=== PATIENT | female | born 2000 | race Two or more races ===

== ENCOUNTER 2021-03-12 17:40 | Emergency (ER) | payer BC ==
[2021-03-12 18:14] VITALS: BP 110/69; PULSE 67; TEMP 98.3; BMI 30.7
[2021-03-12] MEDS ORDERED: KETOROLAC TROMETHAMINE 30 MG/1 ML VIAL IM ONE (18:25)
[2021-03-12] MEDS ORDERED: KETOROLAC TROMETHAMINE 30 MG/1 ML VIAL ONE (18:26)
== END 2021-03-12 18:34 | disposition home or self-care (01) ==
LOC: JERFT 17:40 → JER 17:40 → JERFT 18:34
PROC: 3E023GC Introduction of Other Therapeutic Substance into Muscle, Percutaneous Approach (ICD-10-PCS; principal; 2021-03-12)
DX: S29.012A Strain of muscle and tendon of back wall of thorax, initial encounter (principal); Y99.9 Unspecified external cause status
CPT/HCPCS: 99284-25

== ENCOUNTER 2021-04-07 16:49 | Emergency (ER) | payer BC ==
[2021-04-07 16:57] VITALS: BP 120/79; PULSE 74; TEMP 98.6; BMI 31.6
[2021-04-07] MEDS ORDERED: METHOCARBAMOL 500 MG TABLET PO ONE (18:48)
[2021-04-07] MEDS ORDERED: KETOROLAC TROMETHAMINE 30 MG/1 ML VIAL IM ONE (18:48)
[2021-04-07] MEDS ORDERED: METHOCARBAMOL 500 MG TABLET ONE (18:49)
[2021-04-07] MEDS ORDERED: KETOROLAC TROMETHAMINE 30 MG/1 ML VIAL ONE (18:49)
== END 2021-04-07 19:56 | disposition home or self-care (01) ==
LOC: JERFT 16:49
PROC: 3E0233Z Introduction of Anti-inflammatory into Muscle, Percutaneous Approach (ICD-10-PCS; principal; 2021-04-07)
DX: M62.830 Muscle spasm of back (principal); S13.4XXA Sprain of ligaments of cervical spine, initial encounter; V49.50XA Passenger injured in collision with unspecified motor vehicles in traffic accident, initial encounter
CPT/HCPCS: 99283-25